=== PATIENT | female | born 1955 | race Caucasian/White ===

== ENCOUNTER 2017-12-15 07:40 | Emergency (ER) | payer BC ==
[2017-12-15 07:49] VITALS: BP 140/97
[2017-12-15] MEDS ORDERED: HYDROmorphone 0.5 MG/0.5 ML SYRINGE IVPUSH ONE (08:07)
[2017-12-15] MEDS ORDERED: Metoclopramide 10 MG/2 ML SDV IVPUSH ONE (08:07)
--- NOTE | 2017-12-15 08:07 | EDM.PDOC ---
ED HPI GENERAL MEDICAL PROBLEM - General Chief Complaint: Upper Extremity Injury/Pain Stated Complaint: RIGHT WRIST Time Seen by Provider: 12/15/17 08:02 Source of Information: Reports: Patient History Limitations: Reports: No Limitations - History of Present Illness INITIAL COMMENTS - FREE TEXT/NARRATIVE: 62-year-old female reports to the ED after tripping and falling outside this morning while retrieving her paper. He states she fell forwards onto an outstretched right hand and fell to her right side landing on the stairs. She has suffered a contusion to her right lateral thigh and right lateral distal tib -fib. She can still walk or with no signs of bony injuries to her lower extremity. She has no obvious deformity to her right wrist. Of note she is right -hand dominant. She denies hitting her head or hurting her neck. Patient is on Plavix daily. Last meal was at 0700 hrs. this morning with toast and juice. Onset: Today Onset Date: 12/15/17 Onset Time: 07:30 Duration: Minutes: Location: Reports: Upper Extremity, Right, Lower Extremity, Right (Deformity and injury to the right wrist. Contusion to the right lateral thigh and right distal lateral fibula area without evidence of bony injury) Quality: Reports: Ache, Throbbing Severity: Moderate Improves with: Reports: Rest Worsens with: Reports: Movement Context: Denies: Activity, Exercise, Lifting, Sick Contact, Trauma Associated Symptoms: Denies: No Other Symptoms, Confusion, Chest Pain, Cough, cough w sputum, Diaphoresis, Fever/Chills, Headaches, Loss of Appetite, Malaise , Nausea/Vomiting, Rash, Seizure, Shortness of Breath, Syncope, Weakness Treatments [employer]ER: Reports: Other (see below) (None.) Right Wrist Pain Score (Numeric/FACES): 8 - Related Data Allergies Allergy/AdvReac Type Severity Reaction Status Date / Time No Known Allergies Allergy Verified 12/15/17 07:49 Home Meds: Home Meds Acetaminophen/Diphenhydramine [Acetaminophen Pm Gelcap] 2 tab PO BEDTIME [History] Aspirin [Halfprin] 81 mg PO DAILY 01/22/15 [History] Budesonide/Formoterol [Symbicort 160-4.5 Mcg Inhaler] 1 puff IH DAILY 01/22/15 [ History] Calcium Carbonate/Vitamin D3 [Calcium 600 + Vit D3 Caplet] 1 each PO DAILY 01/22 [History] Clopidogrel [Plavix] 75 mg PO DAILY 01/22/15 [History] Enalapril [Vasotec] 5 mg PO DAILY 01/22/15 [History] Fish Oil/[place]-3 Fatty Acids [Fish Oil] 1,000 mg PO DAILY 01/22/15 [History] Fluticasone Propionate [Flonase] 2 spray NASBOTH DAILY 01/22/15 [History] Loratadine [Claritin RediTabs] 10 mg PO DAILY 01/22/15 [History] Metoprolol Succinate [Toprol XL] 50 mg PO DAILY 01/22/15 [History] Montelukast Sodium [Singulair] 10 mg PO BEDTIME 01/22/15 [History] Multivitamin W-Minerals/Lutein [Vision Plus Lutein Vitamin] 1 each PO DAILY 05/08 [History] Multivitamin with Minerals [One Daily 50 Plus] 1 each PO DAILY 01/22/15 [History ] Omeprazole [Prilosec] 20 mg PO DAILY #15 capsule.dr 01/22/15 [Rx] atorvaSTATin [Lipitor] 40 mg PO DAILY 01/22/15 [History] diphenhydrAMINE [Benadryl] 25 mg PO ASDIRECTED PRN 01/22/15 [History] Polyethylene Glycol 3350 [MiraLAX] 17 gm PO DAILY #1 container 12/15/17 [Rx] oxyCODONE HCl/Acetaminophen [Percocet 5-325 mg Tablet] 1 - 2 each PO Q4H PRN # 20 tablet 12/15/17 [Rx] Past Medical History Cardiovascular History: Reports: High Cholesterol, Hypertension, Stents (X2. One palced in 2007 and another in 2008 --[place]. No [place] 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 Surgical History Cardiovascular Surgical History: Reports: Carotid Stents GI Surgical History: Reports: Hernia Repair/Other, Other (See Below) Other GI Surgeries/Procedures: Gastric bypass, peniculectomy Female Surgical History: Reports: Section Social & Family History - Tobacco Use Smoking Status *Q: Never Smoker - Recreational Drug Use Recreational Drug Use: No - Living Situation & Occupation Living situation: Reports: Occupation: Employed Review of Systems - Review of Systems Review Of Systems: See Below Constitutional: Denies: Chills, Diaphoresis, Fever, Weakness, Other Eyes: Reports: No Symptoms Ears: Reports: No Symptoms Nose: Reports: No Symptoms Mouth/Throat: Reports: No Symptoms Respiratory: Reports: Shortness of Breath, Wheezing (On exertion.), Cough Cardiovascular: Denies: Chest Pain, Edema, Irregular Heart Rate, Lightheadedness , Palpitations, Syncope, Other GI/Abdominal: Reports: No Symptoms Genitourinary: Reports: No Symptoms Skin: Reports: Bruising Neurological: Reports: No Symptoms (Bruises easily because she is on Plavix and aspirin.) Psychiatric: Reports: No Symptoms ED EXAM, GENERAL - Physical Exam Exam: See Below Exam Limited By: No Limitations General Appearance: Alert, Mild Distress (Obvious deformity of her right wrist.) Eye Exam: Bilateral Eye: Normal Inspection Throat/Mouth: Normal Inspection, Normal Lips, Normal Oropharynx Head: Atraumatic, Normocephalic Neck: Normal Inspection, Supple, Non-Tender, Full Range of Motion. No: Lymphadenopathy (L), Lymphadenopathy (R) Respiratory/Chest: No Respiratory Distress, Lungs Clear, Normal Breath Sounds, No Accessory Muscle Use Cardiovascular: Normal Peripheral Pulses, Regular Rate, Rhythm, No Edema, No Gallop, No Murmur Peripheral Pulses: 2+: Posterior Tibial (L), Posterior Tibial (R), Dorsalis Pedis (L), Dorsalis Pedis (R) GI/Abdominal: Normal Bowel Sounds, Soft, Non-Tender, No Organomegaly, No Abnormal Bruit, No Mass, Pelvis Stable Back Exam: Normal Inspection, Full Range of Motion. No: CVA Tenderness (L), CVA Tenderness (R) Extremities: Other (Patient has an obvious deformity of her dorsal right wrist about with fracture. The left upper extremities without signs of injury. The right side shows full pronation supination at the elbow and shoulder.) Neurological: Alert, Oriented, CN II-XII Intact, Normal Cognition, Other Psychiatric: Normal Affect, Normal Mood (Limping gait.) Skin Exam: Warm, Dry, Intact, Normal Color, Ecchymosis (Large area of ecchymoses right lateral distal right leg over the fibula without any evidence of bony injury. Hematoma is 8 cm in size. Similar he has a hematoma to her right mid lateral thigh. Again no signs of bony injuries.), Other ED TRAUMA EXTREMITY PROCEDURES - Splinting Right Upper Extremity Splint Site: above elbow Rt side. Pre-Procedure NV Status: Normal Post-Procedure NV Status: Normal Splint Material: Fiberglass Splint Design: Gutter, Posterior Applied & Form Fitted By: Provider (Radial gutter) Provider Post-Splint Application NV Check: NV Status Normal Complications: No Course - Vital Signs Last Recorded V/S: Last Vital Signs Temp 36.6 C 12/15/17 07:46 Pulse 73 12/15/17 07:46 Resp 16 12/15/17 07:46 BP 140/97 H 12/15/17 07:46 Pulse Ox 97 12/15/17 07:46 - Orders/Labs/Meds Orders: Active Orders 24 hr Category Date Time Status EKG Documentation Completion [RC] STAT Care 12/15/17 08:03 Active Chest 1V Frontal [CR] Stat Exams 12/15/17 08:03 Taken Wrist Comp Min 3V Rt [CR] Stat Exams 12/15/17 08:02 Taken Labs: Laboratory Tests 12/15/17 12/15/17 12/15/17 Range/Units 07:20 07:20 07:20 WBC 7.12 (3.98-10.04) K/mm3 RBC 4.62 (3.98-5.22) M/mm3 Hgb 13.1 (11.2-15.7) gm/L Hct 41.5 (34.1-44.9) % MCV 89.8 (79.4-94.8) fl MCH 28.4 (25.6-32.2) pg MCHC 31.6 L (32.2-35.5) g/dl RDW Std Deviation 44.0 (36.4-46.3) fL Plt Count 186 (182-369) K/mm3 MPV 10.4 (9.4-12.3) fl Neutrophils % (Manual) 85 H (40-60) % Band Neutrophils % 0 (0-10) % Lymphocytes % (Manual) 14 L (20-40) % Atypical Lymphs % 0 % Monocytes % (Manual) 1 L (2-10) % Eosinophils % (Manual) 0 L (0.7-5.8) % Basophils % (Manual) 0 L (0.1-1.2) Platelet Estimate Adequate RBC Morph Comment Normal PT 10.6 (9.5-12.1) SECONDS INR 0.97 APTT 24 (24-31) SECONDS Sodium 143 (136-145) mEq/L Potassium 3.9 (3.5-5.1) mEq/L Chloride 107 (98-107) mEq/L Carbon Dioxide 26 (21-32) mEq/L Anion Gap 13.9 (5-15) BUN 20 H (7-18) mg/dL Creatinine 0.7 (0.55-1.02) mg/dL Est Cr Clr Drug Dosing 67.16 mL/min Estimated GFR (MDRD) > 60 (>60) mL/min BUN/Creatinine Ratio 28.6 H (14-18) Glucose 108 (80-115) mg/dL Calcium 9.0 (8.5-10.1) mg/dL Magnesium 1.8 (1.8-2.4) mg/dl Total Bilirubin 0.4 (0.2-1.0) mg/dL AST 21 (15-37) U/L ALT 24 (14-59) U/L Alkaline Phosphatase 123 H (46-116) U/L Total Protein 6.6 (6.4-8.2) g/dl Albumin 3.4 (3.4-5.0) g/dl Globulin 3.2 gm/dL Albumin/Globulin Ratio 1.1 (1-2) Meds: Medications Discontinued Medications Generic Name Dose Route Start Last Admin Trade Name Freq PRN Reason Stop Dose Admin Hydromorphone HCl 0.5 mg 12/15/17 08:07 12/15/17 08:30 Dilaudid IVPUSH 12/15/17 08:08 0.5 mg ONETIME ONE Administration Sodium Chloride 1,000 mls @ 100 mls/hr 12/15/17 08:15 12/15/17 08:30 Normal Saline IV 100 mls/hr ASDIRECTED NINO Administration Metoclopramide HCl 7.5 mg 12/15/17 08:07 12/15/17 08:30 Reglan IVPUSH 12/15/17 08:08 7.5 mg ONETIME ONE Administration - Radiology Interpretation Free Text/Narrative:: 62-year-old female who tripped and fell while getting the newspaper this morning outside. She landed on outstretched right hand with obvious deformity to her right wrist. She fell to the right side with contusion to her right mid thigh and contusion to her right lateral lower leg as well without signs of bony injury. Patient is on Plavix and aspirin and is therefore swelling quite significantly. Plan IV normal saline 100 mils per hour. Given Dilaudid 0.5 mg IV for pain relief with Reglan 7.5 mg IV as well. Of note patient last ate an hour before coming to the ED with toast and juice. - Re-Assessments/Exams Free Text/Narrative Re-Assessment/Exam: 12/15/17 08:20 x-ray of the wrist reveals a significant Colles' fracture with significant displacement of the radial aspect of the distal radius. He will require orthopedic surgical management. Is also a fracture of the ulnar styloid process. No fracture within the carpal bones identified. Chest x-ray shows minimal cardiomegaly. Lung [place] are otherwise clear. 12/15/17 09:14 I have discussed the case with Dr. Arana orthopedic surgeon and he will see her in clinic next week with plans to operate on her by about . She will therefore be placed in a Ortho-Glass splint at this time both posterior slab and radial gutter splint to immobilize her fracture. Splint will travel above her elbow at this time. To be placed in a sling for support. She will ice the area one half hour out of every 4 hours for the next 3 days. Percocet tabs 5/3/25 milligrams strength one or 2 every 4-6 hours needed for pain relief. MiraLAX powder 17 g daily to prevent constipation. Departure - Departure Time of Disposition: 09:15 Disposition: Home, Self-Care 01 Condition: Fair Clinical Impression: Closed fracture of radius and ulna Qualifiers: Encounter type: initial encounter Laterality: right Qualified Code(s): S52.91XA - Unspecified fracture of right forearm, initial encounter for closed fracture - Discharge Information *PRESCRIPTION DRUG MONITORING PROGRAM REVIEWED*: Not Applicable *COPY OF PRESCRIPTION DRUG MONITORING REPORT IN PATIENT JACK: Not Applicable Prescriptions: oxyCODONE HCl/Acetaminophen [Percocet 5-325 mg Tablet] 1 - 2 each PO Q4H PRN # 20 tablet PRN Reason: pain relief. Polyethylene Glycol 3350 [MiraLAX] 17 gm PO DAILY #1 container Instructions: Radial Fracture Referrals: RatBarney anthony MD [Primary Care Provider] - Forms: ED Department Discharge, ED Return to Work/School Form Additional Instructions: Evaluation the emergency room today in regards to a trip and fall outside while going to get the paper this morning. Fell on outstretched right hand with an obvious deformity to your right wrist. X-rays confirm a fracture of the distal radius with displacement that is going to require orthopedic surgical management. He also fractured the ulnar styloid process of the ulnar bone distal wrist as well. Usually this does not require any surgical treatment. You suffered contusions to your right thigh and right lateral leg which swelled dramatically due to being on Plavix. You're placed in a above elbow Ortho-Glass splint to immobilize her fractured wrist. Dr. Aarna's office will contact you with an appointment time for the next week to do determine when and what type of surgical treatment you are going to require. If they don't call you by later this afternoon please call their office at [phone] Appointment is arrange The meantime elevate her arm above the level of your heart ideally with a sling for the next 3 days. Ice pack to the sore area one half hour out of every 4 hours today And tomorro Medication is to be Percocet 5/325 mg tablets one or 2 every 4-6 hours needed for pain relief. MiraLAX powder 17 g by mouth once daily to prevent constipation while on the pain medication.w.d. - My Orders Last 24 Hours: My Active Orders 12/15/17 08:02 Wrist Comp Min 3V Rt [CR] Stat 12/15/17 08:03 EKG Documentation Completion [RC] STAT Chest 1V Frontal [CR] Stat - Assessment/Plan Last 24 Hours: My Active Orders 12/15/17 08:02 Wrist Comp Min 3V Rt [CR] Stat 12/15/17 08:03 EKG Documentation Completion [RC] STAT Chest 1V Frontal [CR] Stat
[2017-12-15] MEDS ORDERED: Sodium Chloride 0.9% 1,000 ML IV SCH (08:15)
--- NOTE | 2017-12-18 08:37 | CR ---
Chest: AP view of the chest was obtained. Comparison: Prior chest x-ray of 01/22/15. Heart is accentuated from AP technique. Tortuous thoracic aorta is seen. Lungs are clear without acute parenchymal change. Scoliosis is noted within the spine. Impression: 1. Nothing acute is appreciated on AP chest x-ray. Diagnostic code #2
== END 2017-12-15 09:45 | disposition home or self-care (01) ==
LOC: JD.ED 07:40
DX: S52.531A Colles' fracture of right radius, initial encounter for closed fracture (principal); S52.611A Displaced fracture of right ulna styloid process, initial encounter for closed fracture; S90.01XA Contusion of right ankle, initial encounter; S70.11XA Contusion of right thigh, initial encounter; I10 Essential (primary) hypertension; E78.00 Pure hypercholesterolemia, unspecified; Z79.82 Long term (current) use of aspirin; Z79.899 Other long term (current) drug therapy; W10.9XXA Fall (on) (from) unspecified stairs and steps, initial encounter
CPT/HCPCS: 29105; 36415; 71045; 73110; 80053; 83735; 85007; 85027; 85610; 85730; 93005; 96361; 96374; 96375; 99284; J1170; J2765; J7040